=== PATIENT | female | born 1995 | race Caucasian/White ===

== ENCOUNTER 2021-10-28 18:57 | Emergency (ER) | payer SELFPAY ==
[~2021-10-28] VITALS: Ht 160 cm; Wt 46.7 kg
[2021-10-28] MEDS ORDERED: SODIUM BICARBONATE 4.2 % (NEUT) 5 ML VIAL TP ONE (20:45)
[2021-10-28] MEDS ORDERED: LIDOCAINE 1%-EPI 1:100,000 20 ML VIAL IJ ONE (20:45)
[2021-10-28] MEDS ORDERED: VANCOMYCIN IV 1,000 MG in IV DEXTROSE 5% 250 ML IV ONE (20:45)
[2021-10-28] MEDS ORDERED: ONDANSETRON 4 MG/2 ML VIAL IV ONE (21:00)
[2021-10-28] MEDS ORDERED: HYDROMORPHONE 1 MG/1 ML DISP.SYRIN IV ONE (21:00)
[2021-10-28] MEDS ORDERED: LORAZEPAM 2 MG/1 ML VIAL IV ONE (21:00)
[2021-10-28] MEDS ORDERED: HYDROMORPHONE 1 MG/1 ML DISP.SYRIN ONE (21:14)
[2021-10-28] MEDS ORDERED: ONDANSETRON 4 MG/2 ML VIAL ONE (21:14)
[2021-10-28] MEDS ORDERED: LORAZEPAM 2 MG/1 ML VIAL ONE (21:15)
[2021-10-28] MEDS ORDERED: VANCOMYCIN IV 200 ML ONE (21:36)
[2021-10-28] MEDS ORDERED: HYDR-4209 PO (21:46)
[2021-10-28] MEDS ORDERED: CEPH500T PO (21:46)
--- NOTE | 2021-10-28 23:23 | NUR ---
IV removed. Catheter intact and site benign. Pressure and 4x4 gauze applied to site. No bleeding noted.
--- NOTE | 2021-10-28 23:23 | NUR ---
Patient discharged to home in stable condition. Written and verbal after care instructions given. Patient verbalizes understanding of instructions. Stressed follow up or return to ER for worsening s/s. Patient's friend is taking her home. They are taking an Uber.
[2021-10-28 23:24] VITALS: BP 116/71
== END 2021-10-28 23:24 | disposition home or self-care (01) ==
LOC: ER 18:57
DX: L02.416 Cutaneous abscess of left lower limb (principal); L03.116 Cellulitis of left lower limb; Z88.0 Allergy status to penicillin; Z91.040 Latex allergy status; F17.211 Nicotine dependence, cigarettes, in remission
CPT/HCPCS: 10061; 96365; 96366; 96375; 99284; J1170; J2060; J2405; J3370; J3490; A4663